=== PATIENT | male | born 1965 | race Caucasian/White ===

== ENCOUNTER 2020-12-01 07:52 | Inpatient (IN) | payer OTHER, SELFPAY ==
[2020-12-01] MEDS ORDERED: Acetaminophen 650 MG Suppository PR PRN (12:17)
[2020-12-01] MEDS ORDERED: Ondansetron ODT 4 MG TAB PO PRN (12:17)
[2020-12-01] MEDS ORDERED: Dextrose 5% in Water 1,000 ML IV PRN (12:23)
[2020-12-01] MEDS ORDERED: Lactated Ringer's 1,000 ML IV SCH (12:45)
[2020-12-01] MEDS ORDERED: Enoxaparin Sodium 40 MG/0.4 ML SYRINGE SC SCH (12:45)
[2020-12-01] MEDS ORDERED: Magnesium 2 GM/50 ML 2 GM in Premix Bag 1 BAG IVPB SCH (13:15)
[2020-12-01] MEDS ORDERED: Iopamidol-370 76% 500 ML 1 ML ONE (13:48)
[2020-12-01] MEDS: Acetaminophen 325 MG TAB PO PRN ×2 (15:31→21:15)
[2020-12-01] MEDS: Ibuprofen 600 MG TAB PO SCH ×2 (17:22→23:50)
[2020-12-01] MEDS: metFORMIN 500 MG TAB PO SCH (17:22)
[2020-12-01] MEDS: HumaLOG 300 UNITS/3 ML VIAL SC PRN ×2 (17:23→21:13)
[2020-12-01 17:39] LABS: SARS-CoV-2 NAA Rapid Test DETECTED (NotDetected)
[2020-12-01] MEDS: BARICITINIB 2 MG TAB PO SCH (18:37)
[2020-12-02] MEDS ORDERED: hydrOXYzine 25 MG TAB PO SCH (00:45)
[2020-12-02] MEDS ORDERED: Benzonatate 100 MG CAP PO SCH (00:45)
[2020-12-02] MEDS ORDERED: guaiFENesin 200 MG TAB PO SCH (00:45)
[2020-12-02] MEDS: Acetaminophen 325 MG TAB PO PRN ×3 (01:06→20:46)
[2020-12-02] MEDS: HumaLOG 300 UNITS/3 ML VIAL SC PRN ×4 (05:11→21:35)
[2020-12-02 07:25] LABS: ALT (SGPT) 17 U/L (8-55); AST (SGOT) 16 U/L (5-34); Albumin 2.5 g/dL (3.5-5.0); Alkaline Phosphatase 77 U/L (40-110); Anion Gap 10 mmol/L (10-20); BUN (Urea Nitrogen) 22 mg/dL (8.4-25.7); Bilirubin, Total 0.4 mg/dL (0.2-1.2); Calc. Creatinine Clearance 106 mL/min (70-130); Calcium 7.8 mg/dL (7.8-10.44); Carbon Dioxide 30 mmol/L (22-29); Chloride 100 mmol/L (98-107); Globulin 2.9 g/dL (2.4-3.5); Glucose 194 mg/dL (70-105); Magnesium 2.4 mg/dL (1.6-2.6); Potassium 4.7 mmol/L (3.5-5.1); Protein, Total 5.4 g/dL (6.0-8.3); Sodium 135 mmol/L (136-145)
[2020-12-02] MEDS: Enoxaparin Sodium 40 MG/0.4 ML SYRINGE SC SCH (08:57)
[2020-12-02] MEDS: metFORMIN 500 MG TAB PO SCH ×2 (08:57→17:14)
[2020-12-02] MEDS: Ibuprofen 600 MG TAB PO SCH ×2 (08:57→17:14)
[2020-12-02] MEDS: Dexamethasone 4 MG TAB PO SCH (08:57)
[2020-12-02] MEDS: hydrOXYzine 10 MG/5 ML UDCUP PO PRN ×3 (08:58→21:28)
[2020-12-02] MEDS ORDERED: predniSONE 1 MG/ML ML PO SCH (09:00)
[2020-12-02 09:18] LABS: Band 4 % (5-11); Eosinophils 2 % (0-10); Hemoglobin 12.6 g/dL (14.0-18.0); Lymphocytes 29 % (21-51); MDiff Complete? YES; Mean Corpuscular HGB CONC 31.9 g/dL (32.0-36.0); Mean Corpuscular Hemoglobin 26.5 pg (27.0-31.0); Mean Corpuscular Volume 83.1 fL (78.0-98.0); Mean Platelet Volume 7.8 fL (7.4-10.4); Monocytes 7 % (0-10); Neutrophil 58 % (42-75); Platelet Count 213 thou/uL (130-400); RBC Distribution Width 11.9 % (11.5-14.5); Red Blood Cell (RBC) Count 4.74 mill/uL (4.70-6.10)
[2020-12-02] MEDS: BARICITINIB 2 MG TAB PO SCH (17:14)
[2020-12-03] MEDS: Ibuprofen 600 MG TAB PO SCH ×3 (02:00→15:00)
[2020-12-03] MEDS: HumaLOG 300 UNITS/3 ML VIAL SC PRN ×4 (05:29→21:21)
[2020-12-03] MEDS: Acetaminophen 325 MG TAB PO PRN ×2 (05:30→17:04)
[2020-12-03] MEDS: Enoxaparin Sodium 40 MG/0.4 ML SYRINGE SC SCH (07:38)
[2020-12-03] MEDS: metFORMIN 500 MG TAB PO SCH ×2 (07:38→17:04)
[2020-12-03] MEDS: Lantus 1000 UNITS/10 ML VIAL SC SCH ×2 (07:39→21:23)
[2020-12-03] MEDS: Dexamethasone 4 MG TAB PO SCH (07:39)
[2020-12-03] MEDS: hydrOXYzine 10 MG/5 ML UDCUP PO PRN (07:40)
[2020-12-03 08:54] LABS: #Eosinphils 0.1 thou/uL (0.0-0.7); #Lymphocytes 1.8 thou/uL (1.20-3.40); #Neutrophils 7.8 thou/uL (1.40-6.50); %Basophils 0.1 % (0.0-1.0); %Eosinophils 0.9 % (0.0-10.0); %Lymphocytes 16.8 % (21.0-51.0); %Monocytes 9.3 % (0.0-10.0); %Neutrophils 72.9 % (42.0-75.0); Hemoglobin 13.2 g/dL (14.0-18.0); Mean Corpuscular HGB CONC 33.1 g/dL (32.0-36.0); Mean Corpuscular Hemoglobin 27.4 pg (27.0-31.0); Mean Corpuscular Volume 82.8 fL (78.0-98.0); Mean Platelet Volume 7.4 fL (7.4-10.4); Platelet Count 245 thou/uL (130-400); RBC Distribution Width 11.9 % (11.5-14.5); Red Blood Cell (RBC) Count 4.81 mill/uL (4.70-6.10); White Blood Cell (WBC) Count 10.7 thou/uL (4.8-10.8)
[2020-12-03 09:09] LABS: ALT (SGPT) 19 U/L (8-55); AST (SGOT) 14 U/L (5-34); Albumin 2.8 g/dL (3.5-5.0); Alkaline Phosphatase 92 U/L (40-110); Anion Gap 9 mmol/L (10-20); BUN (Urea Nitrogen) 17 mg/dL (8.4-25.7); Bilirubin, Total 0.4 mg/dL (0.2-1.2); Calc. Creatinine Clearance 113 mL/min (70-130); Calcium 8.2 mg/dL (7.8-10.44); Carbon Dioxide 30 mmol/L (22-29); Chloride 100 mmol/L (98-107); Globulin 3.3 g/dL (2.4-3.5); Glucose 231 mg/dL (70-105); Potassium 3.9 mmol/L (3.5-5.1); Protein, Total 6.1 g/dL (6.0-8.3); Sodium 135 mmol/L (136-145)
[2020-12-03] MEDS: Gabapentin 100 MG CAP PO SCH ×2 (15:00→21:17)
[2020-12-03] MEDS: BARICITINIB 2 MG TAB PO SCH (17:03)
[2020-12-03] MEDS: hydrOXYzine 25 MG TAB PO PRN (17:04)
[2020-12-04] MEDS: Ibuprofen 600 MG TAB PO SCH ×3 (00:24→16:50)
[2020-12-04] MEDS: HumaLOG 300 UNITS/3 ML VIAL SC PRN ×4 (06:15→22:13)
[2020-12-04] MEDS: Polyethylene Glycol 3350 17 GM Packet PO SCH (08:24)
[2020-12-04] MEDS: Enoxaparin Sodium 40 MG/0.4 ML SYRINGE SC SCH (08:24)
[2020-12-04] MEDS: hydrOXYzine 25 MG TAB PO PRN ×3 (08:24→16:49)
[2020-12-04] MEDS: metFORMIN 500 MG TAB PO SCH ×2 (08:25→16:49)
[2020-12-04] MEDS: Dexamethasone 4 MG TAB PO SCH (08:25)
[2020-12-04] MEDS: Gabapentin 100 MG CAP PO SCH ×3 (08:25→22:13)
[2020-12-04] MEDS: Lantus 1000 UNITS/10 ML VIAL SC SCH (08:26)
[2020-12-04] MEDS ORDERED: Lantus 1000 UNITS/10 ML VIAL SC SCH (09:00)
[2020-12-04] MEDS: Acetaminophen 325 MG TAB PO PRN (12:47)
[2020-12-04] MEDS: BARICITINIB 2 MG TAB PO SCH (16:49)
[2020-12-05] MEDS: Ibuprofen 600 MG TAB PO SCH ×2 (00:43→08:12)
[2020-12-05 07:32] LABS: #Eosinphils 0.1 thou/uL (0.0-0.7); #Monocytes 1.3 thou/uL (0.11-0.59); #Neutrophils 10.9 thou/uL (1.40-6.50); %Basophils 0.1 % (0.0-1.0); %Eosinophils 0.9 % (0.0-10.0); %Lymphocytes 14.2 % (21.0-51.0); %Monocytes 8.9 % (0.0-10.0); %Neutrophils 75.9 % (42.0-75.0); Hemoglobin 14.2 g/dL (14.0-18.0); Mean Corpuscular HGB CONC 32.1 g/dL (32.0-36.0); Mean Corpuscular Hemoglobin 26.2 pg (27.0-31.0); Mean Corpuscular Volume 81.8 fL (78.0-98.0); Mean Platelet Volume 7.7 fL (7.4-10.4); Platelet Count 297 thou/uL (130-400); Red Blood Cell (RBC) Count 5.41 mill/uL (4.70-6.10); White Blood Cell (WBC) Count 14.4 thou/uL (4.8-10.8)
[2020-12-05 07:50] LABS: ALT (SGPT) 18 U/L (8-55); AST (SGOT) 16 U/L (5-34); Albumin 3.3 g/dL (3.5-5.0); Alkaline Phosphatase 120 U/L (40-110); Anion Gap 15 mmol/L (10-20); BUN (Urea Nitrogen) 18 mg/dL (8.4-25.7); Bilirubin, Total 0.7 mg/dL (0.2-1.2); Calc. Creatinine Clearance 111 mL/min (70-130); Calcium 9.1 mg/dL (7.8-10.44); Carbon Dioxide 32 mmol/L (22-29); Chloride 98 mmol/L (98-107); Globulin 3.7 g/dL (2.4-3.5); Glucose 153 mg/dL (70-105); Potassium 3.9 mmol/L (3.5-5.1); Sodium 141 mmol/L (136-145)
[2020-12-05] MEDS: Gabapentin 100 MG CAP PO SCH ×3 (08:11→20:37)
[2020-12-05] MEDS: Lantus 1000 UNITS/10 ML VIAL SC SCH (08:11)
[2020-12-05] MEDS: Enoxaparin Sodium 40 MG/0.4 ML SYRINGE SC SCH (08:11)
[2020-12-05] MEDS: Dexamethasone 4 MG TAB PO SCH (08:11)
[2020-12-05] MEDS: metFORMIN 500 MG TAB PO SCH ×2 (08:11→16:47)
[2020-12-05] MEDS: hydrOXYzine 25 MG TAB PO PRN (08:12)
[2020-12-05] MEDS: Polyethylene Glycol 3350 17 GM Packet PO SCH (08:12)
[2020-12-05] MEDS ORDERED: Ibuprofen 600 MG TAB PO PRN (08:16)
[2020-12-05 09:04] LABS: Actual Bicarbonate (HCO3a) 30.2 mEq/L (22-28); Base Excess (BEa) 5.8 mEq/L (-2.0 to +3.0); CO2 Tension 42.9 mmHg (35.0-45.0); Calcium, Ionized (arterial) 1.16 mmol/L (1.12-1.30); Carboxyhemoglobin (COHb) 0.5 gm% (0.0-3.0); Hemoglobin (Hb) 13.9 g/dL (14.0-18.0); Potassium - ABG Lab 3.85 mmol/L (3.70-5.30); pH, Arterial 7.47 (7.35-7.45)
[2020-12-05 09:14] LABS: ALV-art Gradient 544.575 mmHg (0-20); O2 Tension (PaO2), arterial 43.5 mmHg (80.0-100.0); Puncture Site LRA
[2020-12-05] MEDS ORDERED: Fentanyl CADD 100 ML ONE (12:40)
[2020-12-05] MEDS ORDERED: Lorazepam 2 MG/ML VIAL ONE (12:46)
[2020-12-05] MEDS ORDERED: Vecuronium 10 MG VIAL ONE ×2 (12:46→13:13)
[2020-12-05] MEDS ORDERED: Lorazepam 2 MG/ML VIAL SLOW IVP PRN (13:00)
[2020-12-05] MEDS ORDERED: Fentanyl CADD 100 ML IV SCH (13:00)
[2020-12-05] MEDS ORDERED: Propofol BOLUS 1,000 MG/100 ML VIAL IV PRN ×2 (13:00→13:30)
[2020-12-05] MEDS ORDERED: Morphine 2 MG/ML VIAL SLOW IVP PRN ×2 (13:00→13:30)
[2020-12-05] MEDS ORDERED: Propofol 1,000 MG/100 ML VIAL IV PRN (13:00)
[2020-12-05] MEDS ORDERED: DISCONTINUE PREVIOUS NARCOTIC PAIN MEDICATIONS AND BENZODIAZEPINES FS SCH (13:00)
[2020-12-05] MEDS ORDERED: Fentanyl BOLUS 250 ML IVPB PRN ×2 (13:00→13:30)
[2020-12-05 13:10] LABS: Actual Bicarbonate (HCO3a) 29.7 mEq/L (22-28); Base Excess (BEa) 3.8 mEq/L (-2.0 to +3.0); Calcium, Ionized (arterial) 1.16 mmol/L (1.12-1.30); Carboxyhemoglobin (COHb) 0.5 gm% (0.0-3.0); Hemoglobin (Hb) 13.6 g/dL (14.0-18.0); pH, Arterial 7.39 (7.35-7.45)
[2020-12-05] MEDS ORDERED: Ventilator Sedation Protocol 1 EACH FS ONE (13:13)
[2020-12-05 13:17] LABS: O2 Tension (PaO2), arterial 59.6 mmHg (80.0-100.0); Puncture Site LRA
[2020-12-05] MEDS: Lorazepam 2 MG/ML VIAL SLOW IVP PRN (14:20)
[2020-12-05] MEDS: Vecuronium 10 MG VIAL IV PRN ×4 (14:20→21:07)
[2020-12-05] MEDS: HumaLOG 300 UNITS/3 ML VIAL SC PRN ×2 (16:03→21:49)
[2020-12-05] MEDS: methylPREDNISolone Sod Succ/PF 80 MG in Sodium Chloride 0.9% 250 ML 250 ML IVP SCH (17:55)
[2020-12-05] MEDS: BARICITINIB 2 MG TAB PO SCH (17:55)
[2020-12-06] MEDS: Vecuronium 10 MG VIAL IV PRN ×5 (02:20→16:04)
[2020-12-06] MEDS: HumaLOG 300 UNITS/3 ML VIAL SC PRN ×3 (03:55→23:10)
[2020-12-06 04:21] LABS: Hemoglobin 11.5 g/dL (14.0-18.0); Mean Corpuscular Hemoglobin 25.9 pg (27.0-31.0); Mean Corpuscular Volume 83.6 fL (78.0-98.0); Platelet Count 218 thou/uL (130-400); Red Blood Cell (RBC) Count 4.42 mill/uL (4.70-6.10); White Blood Cell (WBC) Count 8.7 thou/uL (4.8-10.8)
[2020-12-06 04:30] LABS: ALT (SGPT) 15 U/L (8-55); AST (SGOT) 10 U/L (5-34); Albumin 2.6 g/dL (3.5-5.0); Alkaline Phosphatase 90 U/L (40-110); Anion Gap 12 mmol/L (10-20); BUN (Urea Nitrogen) 28 mg/dL (8.4-25.7); Bilirubin, Total 0.4 mg/dL (0.2-1.2); Calc. Creatinine Clearance 111 mL/min (70-130); Calcium 7.8 mg/dL (7.8-10.44); Carbon Dioxide 27 mmol/L (22-29); Chloride 103 mmol/L (98-107); Globulin 2.9 g/dL (2.4-3.5); Glucose 211 mg/dL (70-105); Protein, Total 5.5 g/dL (6.0-8.3); Sodium 137 mmol/L (136-145)
[2020-12-06 04:58] LABS: Band 6 % (5-11); Lymphocytes 8 % (21-51); MDiff Complete? YES; Monocytes 4 % (0-10); Neutrophil 82 % (42-75)
[2020-12-06] MEDS ORDERED: Sodium Chloride 0.9% (PF) 10 ML VIAL FS PRN (07:00)
[2020-12-06] MEDS ORDERED: Fentanyl CADD 100 ML ONE ×2 (07:11→22:56)
[2020-12-06 08:22] LABS: Actual Bicarbonate (HCO3a) 25.8 mEq/L (22-28); Base Excess (BEa) 1.5 mEq/L (-2.0 to +3.0); CO2 Tension 39.9 mmHg (35.0-45.0); Calcium, Ionized (arterial) 1.12 mmol/L (1.12-1.30); Carboxyhemoglobin (COHb) 0.7 gm% (0.0-3.0); Potassium - ABG Lab 4.37 mmol/L (3.70-5.30); pH, Arterial 7.43 (7.35-7.45)
[2020-12-06 08:26] LABS: ALV-art Gradient 303.925 mmHg (0-20); Puncture Site RRA
[2020-12-06] MEDS ORDERED: Lantus 1000 UNITS/10 ML VIAL SC SCH (09:42)
[2020-12-06] MEDS: Pantoprazole 40 MG VIAL IVP SCH (10:11)
[2020-12-06] MEDS: Enoxaparin Sodium 40 MG/0.4 ML SYRINGE SC SCH (10:11)
[2020-12-06] MEDS: Polyethylene Glycol 3350 17 GM Packet PO SCH (10:12)
[2020-12-06] MEDS: methylPREDNISolone Sod Succ/PF 80 MG in Sodium Chloride 0.9% 250 ML 250 ML IVP SCH (17:46)
[2020-12-06] MEDS: BARICITINIB 2 MG TAB PO SCH (18:43)
[2020-12-06] MEDS: Fentanyl CADD 100 ML IV SCH (22:59)
[2020-12-07] MEDS: HumaLOG 300 UNITS/3 ML VIAL SC PRN ×3 (05:59→22:02)
[2020-12-07 07:05] LABS: Anion Gap 13 mmol/L (10-20); BUN (Urea Nitrogen) 30 mg/dL (8.4-25.7); Calc. Creatinine Clearance 124 mL/min (70-130); Calcium 8.3 mg/dL (7.8-10.44); Carbon Dioxide 26 mmol/L (22-29); Chloride 103 mmol/L (98-107); Glucose 217 mg/dL (70-105); Potassium 4.6 mmol/L (3.5-5.1); Sodium 137 mmol/L (136-145)
[2020-12-07 07:30] LABS: Hemoglobin 12.4 g/dL (14.0-18.0); Mean Corpuscular HGB CONC 33.8 g/dL (32.0-36.0); Mean Corpuscular Hemoglobin 27.9 pg (27.0-31.0); Mean Corpuscular Volume 82.7 fL (78.0-98.0); Mean Platelet Volume 7.5 fL (7.4-10.4); Platelet Count 263 thou/uL (130-400); RBC Distribution Width 12.2 % (11.5-14.5); Red Blood Cell (RBC) Count 4.43 mill/uL (4.70-6.10)
[2020-12-07 07:57] LABS: Band 3 % (5-11); Lymphocytes 6 % (21-51); MDiff Complete? YES; Metamyelocyte 1 % (0-0); Monocytes 7 % (0-10); Neutrophil 83 % (42-75); Platelet Morphology Comment Appears Adequate; RBC Morphology Normal
[2020-12-07] MEDS: Vecuronium 10 MG VIAL IV PRN ×2 (08:41→21:04)
[2020-12-07] MEDS: Enoxaparin Sodium 40 MG/0.4 ML SYRINGE SC SCH ×2 (08:41→21:03)
[2020-12-07] MEDS: Pantoprazole 40 MG VIAL IVP SCH (08:42)
[2020-12-07] MEDS: Lorazepam 2 MG/ML VIAL SLOW IVP PRN (08:42)
[2020-12-07 09:17] LABS: Actual Bicarbonate (HCO3a) 27.8 mEq/L (22-28); Base Excess (BEa) 2.3 mEq/L (-2.0 to +3.0); CO2 Tension 46.3 mmHg (35.0-45.0); Calcium, Ionized (arterial) 1.15 mmol/L (1.12-1.30); Carboxyhemoglobin (COHb) 0.8 gm% (0.0-3.0); O2 Tension (PaO2), arterial 64.7 mmHg (80.0-100.0); Potassium - ABG Lab 4.32 mmol/L (3.70-5.30); Puncture Site RRA
[2020-12-07 09:18] LABS: ALV-art Gradient 233.925 mmHg (0-20)
[2020-12-07] MEDS ORDERED: Fentanyl CADD 100 ML ONE ×2 (10:45→19:21)
[2020-12-07] MEDS: Fentanyl CADD 100 ML IV SCH (10:47)
[2020-12-07] MEDS: Polyethylene Glycol 3350 17 GM Packet PO SCH (12:01)
[2020-12-07] MEDS: methylPREDNISolone Sod Succ/PF 80 MG in Sodium Chloride 0.9% 250 ML 250 ML IVP SCH (16:01)
[2020-12-07] MEDS: BARICITINIB 2 MG TAB PO SCH (18:22)
[2020-12-08] MEDS: Vecuronium 10 MG VIAL IV PRN ×2 (01:12→02:42)
[2020-12-08 04:23] LABS: ALT (SGPT) 13 U/L (8-55); AST (SGOT) 9 U/L (5-34); Albumin 2.7 g/dL (3.5-5.0); Alkaline Phosphatase 81 U/L (40-110); Anion Gap 9 mmol/L (10-20); BUN (Urea Nitrogen) 26 mg/dL (8.4-25.7); Bilirubin, Total 0.5 mg/dL (0.2-1.2); Calc. Creatinine Clearance 132 mL/min (70-130); Calcium 8.1 mg/dL (7.8-10.44); Carbon Dioxide 29 mmol/L (22-29); Chloride 103 mmol/L (98-107); Glucose 241 mg/dL (70-105); Potassium 4.6 mmol/L (3.5-5.1); Protein, Total 5.7 g/dL (6.0-8.3); Sodium 136 mmol/L (136-145)
[2020-12-08 04:37] LABS: Mean Corpuscular HGB CONC 32.7 g/dL (32.0-36.0); Mean Corpuscular Volume 82.6 fL (78.0-98.0); Mean Platelet Volume 7.7 fL (7.4-10.4); Platelet Count 278 thou/uL (130-400); RBC Distribution Width 12.1 % (11.5-14.5); Red Blood Cell (RBC) Count 4.44 mill/uL (4.70-6.10); White Blood Cell (WBC) Count 12.6 thou/uL (4.8-10.8)
[2020-12-08 05:00] LABS: Band 2 % (5-11); Lymphocytes 8 % (21-51); MDiff Complete? YES; Monocytes 5 % (0-10); Neutrophil 84 % (42-75); Platelet Morphology Comment Appears Adequate; RBC Morphology Normal; Reactive Lymphocytes 1 % (0-10)
[2020-12-08] MEDS ORDERED: Fentanyl CADD 100 ML ONE ×2 (05:13→15:28)
[2020-12-08] MEDS: Fentanyl CADD 100 ML IV SCH (05:20)
[2020-12-08] MEDS: HumaLOG 300 UNITS/3 ML VIAL SC PRN ×3 (05:20→22:34)
[2020-12-08] MEDS: Midazolam In 0.9 % NaCl/PF 100 ML IVPB PRN ×2 (06:42→20:52)
[2020-12-08 07:31] LABS: Actual Bicarbonate (HCO3a) 25.8 mEq/L (22-28); Base Excess (BEa) 2.3 mEq/L (-2.0 to +3.0); CO2 Tension 36.4 mmHg (35.0-45.0); Calcium, Ionized (arterial) 1.15 mmol/L (1.12-1.30); Carboxyhemoglobin (COHb) 0.3 gm% (0.0-3.0); Hemoglobin (Hb) 12.8 g/dL (14.0-18.0); O2 Tension (PaO2), arterial 84.2 mmHg (80.0-100.0); Potassium - ABG Lab 4.45 mmol/L (3.70-5.30); pH, Arterial 7.47 (7.35-7.45)
[2020-12-08 07:48] LABS: Puncture Site RRA
[2020-12-08] MEDS ORDERED: Lantus 1000 UNITS/10 ML VIAL SC SCH (09:00)
[2020-12-08] MEDS: Polyethylene Glycol 3350 17 GM Packet PO SCH (09:13)
[2020-12-08] MEDS: Pantoprazole 40 MG VIAL IVP SCH (09:20)
[2020-12-08] MEDS: Enoxaparin Sodium 40 MG/0.4 ML SYRINGE SC SCH ×2 (09:20→21:08)
[2020-12-08] MEDS ORDERED: Potassium Chloride 20 MEQ TAB PO SCH (12:30)
[2020-12-08] MEDS ORDERED: Sterile Water 10 ML ONE (14:29)
[2020-12-08] MEDS: methylPREDNISolone Sod Succ/PF 80 MG in Sodium Chloride 0.9% 250 ML 250 ML IVP SCH (16:59)
[2020-12-08] MEDS ORDERED: metFORMIN 500 MG TAB PO SCH (17:00)
[2020-12-08] MEDS: BARICITINIB 2 MG TAB PO SCH (17:38)
[2020-12-09] MEDS ORDERED: Fentanyl CADD 100 ML ONE ×2 (04:15→15:55)
[2020-12-09] MEDS: Fentanyl CADD 100 ML IV SCH ×2 (04:20→15:59)
[2020-12-09 05:22] LABS: Hemoglobin 12.3 g/dL (14.0-18.0); Lymphocytes 9 % (21-51); MDiff Complete? YES; Mean Corpuscular HGB CONC 32.2 g/dL (32.0-36.0); Mean Corpuscular Hemoglobin 26.4 pg (27.0-31.0); Mean Corpuscular Volume 82.2 fL (78.0-98.0); Mean Platelet Volume 8.2 fL (7.4-10.4); Monocytes 8 % (0-10); Myelocyte 1 % (0-0); Neutrophil 82 % (42-75); Platelet Count 282 thou/uL (130-400); Platelet Morphology Comment Appears Adequate; RBC Distribution Width 12.1 % (11.5-14.5); Red Blood Cell (RBC) Count 4.66 mill/uL (4.70-6.10); White Blood Cell (WBC) Count 9.5 thou/uL (4.8-10.8)
[2020-12-09 05:55] LABS: ALT (SGPT) 14 U/L (8-55); AST (SGOT) 9 U/L (5-34); Albumin 2.8 g/dL (3.5-5.0); Alkaline Phosphatase 76 U/L (40-110); Anion Gap 12 mmol/L (10-20); BUN (Urea Nitrogen) 27 mg/dL (8.4-25.7); Bilirubin, Total 0.6 mg/dL (0.2-1.2); Calc. Creatinine Clearance 129 mL/min (70-130); Calcium 8.3 mg/dL (7.8-10.44); Carbon Dioxide 26 mmol/L (22-29); Chloride 103 mmol/L (98-107); Glucose 201 mg/dL (70-105); Potassium 4.6 mmol/L (3.5-5.1); Protein, Total 5.8 g/dL (6.0-8.3); Sodium 136 mmol/L (136-145)
[2020-12-09] MEDS: HumaLOG 300 UNITS/3 ML VIAL SC PRN ×3 (06:51→22:54)
[2020-12-09 07:25] LABS: Actual Bicarbonate (HCO3a) 24.1 mEq/L (22-28); Base Excess (BEa) 2.2 mEq/L (-2.0 to +3.0); CO2 Tension 29.3 mmHg (35.0-45.0); Calcium, Ionized (arterial) 1.15 mmol/L (1.12-1.30); Carboxyhemoglobin (COHb) 0.4 gm% (0.0-3.0); Hemoglobin (Hb) 12.6 g/dL (14.0-18.0); O2 Tension (PaO2), arterial 60.7 mmHg (80.0-100.0); Potassium - ABG Lab 4.24 mmol/L (3.70-5.30); pH, Arterial 7.53 (7.35-7.45)
[2020-12-09 07:35] LABS: ALV-art Gradient 187.875 mmHg (0-20)
[2020-12-09] MEDS: Lantus 1000 UNITS/10 ML VIAL SC SCH ×2 (09:00→11:45)
[2020-12-09] MEDS: Polyethylene Glycol 3350 17 GM Packet PO SCH (09:00)
[2020-12-09] MEDS: Enoxaparin Sodium 40 MG/0.4 ML SYRINGE SC SCH ×2 (09:00→20:07)
[2020-12-09] MEDS: Pantoprazole 40 MG VIAL IVP SCH (09:00)
[2020-12-09] MEDS: Midazolam In 0.9 % NaCl/PF 100 ML IVPB PRN ×2 (09:36→22:54)
[2020-12-09] MEDS: methylPREDNISolone Sod Succ/PF 80 MG in Sodium Chloride 0.9% 250 ML 250 ML IVP SCH (15:59)
[2020-12-09] MEDS: BARICITINIB 2 MG TAB PO SCH (18:12)
[2020-12-10 04:12] LABS: Anion Gap 11 mmol/L (10-20); BUN (Urea Nitrogen) 24 mg/dL (8.4-25.7); Calc. Creatinine Clearance 131 mL/min (70-130); Calcium 8.1 mg/dL (7.8-10.44); Carbon Dioxide 26 mmol/L (22-29); Chloride 104 mmol/L (98-107); Glucose 179 mg/dL (70-105); Potassium 4.7 mmol/L (3.5-5.1); Sodium 136 mmol/L (136-145)
[2020-12-10 04:27] LABS: Band 4 % (5-11); Hemoglobin 12.3 g/dL (14.0-18.0); Lymphocytes 9 % (21-51); MDiff Complete? YES; Mean Corpuscular HGB CONC 34.1 g/dL (32.0-36.0); Mean Corpuscular Volume 82.2 fL (78.0-98.0); Mean Platelet Volume 8.2 fL (7.4-10.4); Monocytes 7 % (0-10); Myelocyte 1 % (0-0); Neutrophil 75 % (42-75); Platelet Count 301 thou/uL (130-400); Platelet Morphology Comment Appears Adequate; RBC Morphology Normal; Reactive Lymphocytes 4 % (0-10); White Blood Cell (WBC) Count 10.2 thou/uL (4.8-10.8)
[2020-12-10] MEDS: HumaLOG 300 UNITS/3 ML VIAL SC PRN ×3 (04:46→21:02)
[2020-12-10] MEDS ORDERED: Fentanyl CADD 100 ML ONE ×2 (05:47→17:50)
[2020-12-10] MEDS: Fentanyl CADD 100 ML IV SCH ×2 (05:54→17:54)
[2020-12-10 08:07] LABS: Actual Bicarbonate (HCO3a) 23.9 mEq/L (22-28); Base Excess (BEa) 1.2 mEq/L (-2.0 to +3.0); CO2 Tension 31.9 mmHg (35.0-45.0); Calcium, Ionized (arterial) 1.13 mmol/L (1.12-1.30); Carboxyhemoglobin (COHb) 0.6 gm% (0.0-3.0); Hemoglobin (Hb) 12.6 g/dL (14.0-18.0); O2 Tension (PaO2), arterial 106.9 mmHg (80.0-100.0); pH, Arterial 7.49 (7.35-7.45)
[2020-12-10] MEDS: Lantus 1000 UNITS/10 ML VIAL SC SCH (08:34)
[2020-12-10] MEDS: Polyethylene Glycol 3350 17 GM Packet PO SCH (08:34)
[2020-12-10] MEDS: Propofol 1,000 MG/100 ML VIAL IV PRN ×2 (08:34→17:00)
[2020-12-10] MEDS: Pantoprazole 40 MG VIAL IVP SCH (08:34)
[2020-12-10] MEDS: Enoxaparin Sodium 40 MG/0.4 ML SYRINGE SC SCH ×2 (08:34→21:04)
[2020-12-10 08:37] LABS: ALV-art Gradient 138.425 mmHg (0-20); Puncture Site RRA
[2020-12-10] MEDS: BARICITINIB 2 MG TAB PO SCH (16:59)
[2020-12-10] MEDS: methylPREDNISolone Sod Succ/PF 80 MG in Sodium Chloride 0.9% 250 ML 250 ML IVP SCH (16:59)
[2020-12-10] MEDS: Lorazepam 2 MG/ML VIAL SLOW IVP PRN (21:02)
[2020-12-11] MEDS: Propofol 1,000 MG/100 ML VIAL IV PRN ×3 (01:44→14:36)
[2020-12-11 04:16] LABS: Anion Gap 10 mmol/L (10-20); BUN (Urea Nitrogen) 22 mg/dL (8.4-25.7); Calc. Creatinine Clearance 127 mL/min (70-130); Calcium 8.3 mg/dL (7.8-10.44); Carbon Dioxide 28 mmol/L (22-29); Chloride 102 mmol/L (98-107); Glucose 181 mg/dL (70-105); Potassium 4.9 mmol/L (3.5-5.1); Sodium 135 mmol/L (136-145)
[2020-12-11 04:37] LABS: Band 3 % (5-11); Hemoglobin 12.3 g/dL (14.0-18.0); Hypochromia SLIGHT = 6-15 cells (100X) (0-5/hpf); Lymphocytes 10 % (21-51); MDiff Complete? YES; Mean Corpuscular HGB CONC 32.7 g/dL (32.0-36.0); Mean Corpuscular Hemoglobin 27.1 pg (27.0-31.0); Mean Corpuscular Volume 82.9 fL (78.0-98.0); Mean Platelet Volume 8.1 fL (7.4-10.4); Monocytes 11 % (0-10); Neutrophil 76 % (42-75); Platelet Count 277 thou/uL (130-400); Platelet Morphology Comment Appears Adequate; Red Blood Cell (RBC) Count 4.53 mill/uL (4.70-6.10); White Blood Cell (WBC) Count 12.4 thou/uL (4.8-10.8)
[2020-12-11] MEDS: HumaLOG 300 UNITS/3 ML VIAL SC PRN ×2 (05:19→21:41)
[2020-12-11] MEDS ORDERED: Fentanyl CADD 100 ML ONE ×2 (07:07→20:18)
[2020-12-11] MEDS: Fentanyl CADD 100 ML IV SCH ×2 (07:10→20:21)
[2020-12-11 07:47] LABS: CO2 Tension 39.5 mmHg (35.0-45.0); Calcium, Ionized (arterial) 1.18 mmol/L (1.12-1.30); Carboxyhemoglobin (COHb) 0.7 gm% (0.0-3.0); Hemoglobin (Hb) 13.3 g/dL (14.0-18.0); O2 Tension (PaO2), arterial 108.9 mmHg (80.0-100.0); Potassium - ABG Lab 4.52 mmol/L (3.70-5.30); pH, Arterial 7.45 (7.35-7.45)
[2020-12-11 08:21] LABS: ALV-art Gradient 126.925 mmHg (0-20); Puncture Site RRA
[2020-12-11] MEDS: Lorazepam 2 MG/ML VIAL SLOW IVP PRN ×2 (09:34→21:38)
[2020-12-11] MEDS: Dexamethasone 4 MG TAB PER TUBE SCH ×2 (09:34→19:58)
[2020-12-11] MEDS: Docusate 100 MG CAP PER TUBE SCH ×2 (09:34→19:57)
[2020-12-11] MEDS: Senokot S 8.6-50 MG TAB PO SCH ×2 (09:34→19:58)
[2020-12-11] MEDS: Polyethylene Glycol 3350 17 GM Packet PO SCH (09:34)
[2020-12-11] MEDS: Lantus 1000 UNITS/10 ML VIAL SC SCH (09:35)
[2020-12-11] MEDS: Enoxaparin Sodium 40 MG/0.4 ML SYRINGE SC SCH (10:24)
[2020-12-11] MEDS: BARICITINIB 2 MG TAB PO SCH (17:50)
[2020-12-12] MEDS: Propofol 1,000 MG/100 ML VIAL IV PRN ×2 (02:13→21:32)
[2020-12-12] MEDS: HumaLOG 300 UNITS/3 ML VIAL SC PRN ×2 (04:43→08:32)
[2020-12-12 05:04] LABS: Band 2 % (5-11); Hemoglobin 12.3 g/dL (14.0-18.0); Lymphocytes 11 % (21-51); MDiff Complete? YES; Mean Corpuscular Hemoglobin 27.2 pg (27.0-31.0); Mean Corpuscular Volume 84.8 fL (78.0-98.0); Metamyelocyte 2 % (0-0); Monocytes 6 % (0-10); Neutrophil 78 % (42-75); Platelet Count 279 thou/uL (130-400); Platelet Morphology Comment Appears Adequate; RBC Morphology Normal; Reactive Lymphocytes 1 % (0-10); Red Blood Cell (RBC) Count 4.52 mill/uL (4.70-6.10); White Blood Cell (WBC) Count 11.1 thou/uL (4.8-10.8)
[2020-12-12 05:06] LABS: Anion Gap 11 mmol/L (10-20); BUN (Urea Nitrogen) 21 mg/dL (8.4-25.7); Calc. Creatinine Clearance 124 mL/min (70-130); Calcium 8.2 mg/dL (7.8-10.44); Carbon Dioxide 30 mmol/L (22-29); Chloride 101 mmol/L (98-107); Glucose 180 mg/dL (70-105); Potassium 4.5 mmol/L (3.5-5.1); Sodium 137 mmol/L (136-145)
[2020-12-12 05:14] LABS: ALT (SGPT) 12 U/L (8-55); AST (SGOT) 8 U/L (5-34); Albumin 2.6 g/dL (3.5-5.0); Alkaline Phosphatase 71 U/L (40-110); Bilirubin, Direct 0.2 mg/dL (0.1-0.3); Bilirubin, Total 0.4 mg/dL (0.2-1.2); Protein, Total 5.8 g/dL (6.0-8.3)
[2020-12-12 07:43] LABS: Actual Bicarbonate (HCO3a) 34.2 mEq/L (22-28); Base Excess (BEa) 9.6 mEq/L (-2.0 to +3.0); CO2 Tension 46.2 mmHg (35.0-45.0); Calcium, Ionized (arterial) 1.16 mmol/L (1.12-1.30); Carboxyhemoglobin (COHb) 0.7 gm% (0.0-3.0); Hemoglobin (Hb) 12.6 g/dL (14.0-18.0); Potassium - ABG Lab 4.13 mmol/L (3.70-5.30); Puncture Site RBA; pH, Arterial 7.49 (7.35-7.45)
[2020-12-12] MEDS: Senokot S 8.6-50 MG TAB PO SCH ×2 (08:05→21:29)
[2020-12-12] MEDS: Dexamethasone 4 MG TAB PER TUBE SCH ×2 (08:05→21:29)
[2020-12-12] MEDS: Docusate 100 MG CAP PER TUBE SCH (08:05)
[2020-12-12] MEDS: Polyethylene Glycol 3350 17 GM Packet PO SCH (08:05)
[2020-12-12] MEDS: Lantus 1000 UNITS/10 ML VIAL SC SCH (08:06)
[2020-12-12] MEDS ORDERED: Fentanyl CADD 100 ML ONE (09:07)
[2020-12-12] MEDS: Fentanyl CADD 100 ML IV SCH ×2 (09:09→21:30)
[2020-12-12] MEDS: Enoxaparin Sodium 40 MG/0.4 ML SYRINGE SC SCH ×2 (09:10→21:31)
[2020-12-12] MEDS: Dexmedetomidine 1,000 MCG in Sodium Chloride 0.9% 250 ML 240 ML IVPB SCH ×2 (13:15→23:16)
[2020-12-12] MEDS: Lorazepam 2 MG/ML VIAL SLOW IVP PRN (16:45)
[2020-12-12] MEDS: BARICITINIB 2 MG TAB PO SCH (17:16)
[2020-12-12] MEDS: Dextrose 50% Abboject 50 ML SYRINGE SLOW IVP PRN (22:03)
[2020-12-13] MEDS: Lorazepam 2 MG/ML VIAL SLOW IVP PRN ×2 (02:55→16:15)
[2020-12-13 05:13] LABS: Anion Gap 11 mmol/L (10-20); BUN (Urea Nitrogen) 17 mg/dL (8.4-25.7); Calc. Creatinine Clearance 155 mL/min (70-130); Calcium 6.9 mg/dL (7.8-10.44); Carbon Dioxide 26 mmol/L (22-29); Chloride 107 mmol/L (98-107); Glucose 66 mg/dL (70-105); Potassium 3.8 mmol/L (3.5-5.1); Sodium 140 mmol/L (136-145); Triglycerides 83 mg/dL (Less than 150)
[2020-12-13] MEDS: Fentanyl CADD 100 ML IV SCH (06:34)
[2020-12-13 07:14] LABS: Actual Bicarbonate (HCO3a) 30.4 mEq/L (22-28); Base Excess (BEa) 5.7 mEq/L (-2.0 to +3.0); CO2 Tension 44.5 mmHg (35.0-45.0); Calcium, Ionized (arterial) 1.16 mmol/L (1.12-1.30); Carboxyhemoglobin (COHb) 0.9 gm% (0.0-3.0); Hemoglobin (Hb) 13.5 g/dL (14.0-18.0); O2 Tension (PaO2), arterial 62.7 mmHg (80.0-100.0); Potassium - ABG Lab 3.93 mmol/L (3.70-5.30); Puncture Site RRA; pH, Arterial 7.45 (7.35-7.45)
[2020-12-13 07:15] LABS: ALV-art Gradient 131.225 mmHg (0-20)
[2020-12-13] MEDS: Dextrose 50% Abboject 50 ML SYRINGE SLOW IVP PRN (08:17)
[2020-12-13] MEDS: Enoxaparin Sodium 40 MG/0.4 ML SYRINGE SC SCH ×2 (08:18→21:00)
[2020-12-13] MEDS: Polyethylene Glycol 3350 17 GM Packet PO SCH (08:18)
[2020-12-13] MEDS: Senokot S 8.6-50 MG TAB PO SCH ×2 (08:18→22:50)
[2020-12-13] MEDS ORDERED: Lantus 1000 UNITS/10 ML VIAL SC SCH (09:00)
[2020-12-13] MEDS: Dexamethasone 4 MG TAB PER TUBE SCH ×2 (09:06→22:49)
[2020-12-13 09:23] LABS: Hemoglobin 13.5 g/dL (14.0-18.0); Mean Corpuscular Hemoglobin 25.9 pg (27.0-31.0); Mean Corpuscular Volume 83.8 fL (78.0-98.0); Platelet Count 233 thou/uL (130-400); RBC Distribution Width 12.2 % (11.5-14.5); White Blood Cell (WBC) Count 15.6 thou/uL (4.8-10.8)
[2020-12-13 09:49] LABS: Band 6 % (5-11); Lymphocytes 10 % (21-51); MDiff Complete? YES; Monocytes 7 % (0-10); Neutrophil 75 % (42-75); Platelet Morphology Comment Appears Adequate; RBC Morphology Normal; Reactive Lymphocytes 2 % (0-10)
[2020-12-13] MEDS: Dexmedetomidine 1,000 MCG in Sodium Chloride 0.9% 250 ML 240 ML IVPB SCH ×2 (10:44→19:58)
[2020-12-13 15:00] LABS: Glucose 139 mg/dL (70-105)
[2020-12-13] MEDS: Morphine 4 MG/ML VIAL SLOW IVP PRN (20:28)
[2020-12-13] MEDS ORDERED: Dexamethasone 4 mg/ml Vial SLOW IVP SCH (21:45)
[2020-12-13] MEDS: BARICITINIB 2 MG TAB PO SCH (22:49)
[2020-12-14] MEDS: HumaLOG 300 UNITS/3 ML VIAL SC PRN (00:54)
[2020-12-14] MEDS: Morphine 4 MG/ML VIAL SLOW IVP PRN (03:05)
[2020-12-14 04:22] LABS: #Eosinphils 0.1 thou/uL (0.0-0.7); #Lymphocytes 1.1 thou/uL (1.20-3.40); #Monocytes 0.8 thou/uL (0.11-0.59); #Neutrophils 12.3 thou/uL (1.40-6.50); %Basophils 0.2 % (0.0-1.0); %Eosinophils 0.7 % (0.0-10.0); %Monocytes 5.6 % (0.0-10.0); %Neutrophils 85.5 % (42.0-75.0); Hemoglobin 13.5 g/dL (14.0-18.0); Mean Corpuscular Hemoglobin 28.3 pg (27.0-31.0); Mean Corpuscular Volume 83.4 fL (78.0-98.0); Mean Platelet Volume 8.2 fL (7.4-10.4); Platelet Count 212 thou/uL (130-400); Red Blood Cell (RBC) Count 4.76 mill/uL (4.70-6.10); White Blood Cell (WBC) Count 14.4 thou/uL (4.8-10.8)
[2020-12-14 04:53] LABS: Anion Gap 13 mmol/L (10-20); BUN (Urea Nitrogen) 18 mg/dL (8.4-25.7); Calc. Creatinine Clearance 121 mL/min (70-130); Calcium 8.3 mg/dL (7.8-10.44); Carbon Dioxide 28 mmol/L (22-29); Chloride 98 mmol/L (98-107); Glucose 140 mg/dL (70-105); Potassium 4.3 mmol/L (3.5-5.1); Sodium 135 mmol/L (136-145); Triglycerides 103 mg/dL (Less than 150)
[2020-12-14] MEDS: Dexmedetomidine 1,000 MCG in Sodium Chloride 0.9% 250 ML 240 ML IVPB SCH (06:10)
[2020-12-14] MEDS: Lorazepam 2 MG/ML VIAL SLOW IVP PRN (08:14)
[2020-12-14] MEDS ORDERED: Pantoprazole 40 MG GRANULES PACKET PER TUBE SCH (09:00)
[2020-12-14] MEDS: Dexamethasone 10 MG/ML VIAL SLOW IVP SCH ×2 (09:27→20:30)
[2020-12-14] MEDS: Enoxaparin Sodium 40 MG/0.4 ML SYRINGE SC SCH ×2 (09:27→20:30)
[2020-12-14] MEDS: Senokot S 8.6-50 MG TAB PO SCH ×2 (09:28→20:31)
[2020-12-14] MEDS: Polyethylene Glycol 3350 17 GM Packet PO SCH (09:28)
[2020-12-14] MEDS: Pantoprazole 40 MG VIAL IVP SCH (09:28)
[2020-12-14] MEDS ORDERED: Lorazepam 2 MG/ML VIAL SLOW IVP PRN (12:16)
[2020-12-14] MEDS ORDERED: fentaNYL 50 mcg/hour Patch TD SCH (13:00)
[2020-12-14] MEDS: Lorazepam 2 MG/ML VIAL SLOW IVP SCH ×2 (13:41→20:30)
[2020-12-14] MEDS: BARICITINIB 2 MG TAB PO SCH (18:52)
[2020-12-15 04:02] LABS: #Lymphocytes 1.6 thou/uL (1.20-3.40); #Neutrophils 11.5 thou/uL (1.40-6.50); %Basophils 0.2 % (0.0-1.0); %Eosinophils 0.2 % (0.0-10.0); %Lymphocytes 11.3 % (21.0-51.0); %Monocytes 7.2 % (0.0-10.0); Mean Corpuscular HGB CONC 32.3 g/dL (32.0-36.0); Mean Corpuscular Hemoglobin 26.6 pg (27.0-31.0); Mean Corpuscular Volume 82.2 fL (78.0-98.0); Mean Platelet Volume 7.6 fL (7.4-10.4); Platelet Count 306 thou/uL (130-400); Red Blood Cell (RBC) Count 5.28 mill/uL (4.70-6.10); White Blood Cell (WBC) Count 14.2 thou/uL (4.8-10.8)
[2020-12-15 04:21] LABS: Phosphorus 2.1 mg/dL (2.3-4.7)
[2020-12-15 04:24] LABS: ALT (SGPT) 23 U/L (8-55); AST (SGOT) 23 U/L (5-34); Albumin 2.9 g/dL (3.5-5.0); Alkaline Phosphatase 85 U/L (40-110); Anion Gap 11 mmol/L (10-20); BUN (Urea Nitrogen) 20 mg/dL (8.4-25.7); Bilirubin, Total 0.9 mg/dL (0.2-1.2); Calc. Creatinine Clearance 110 mL/min (70-130); Calcium 8.5 mg/dL (7.8-10.44); Carbon Dioxide 30 mmol/L (22-29); Chloride 98 mmol/L (98-107); Globulin 3.1 g/dL (2.4-3.5); Glucose 122 mg/dL (70-105); Magnesium 1.8 mg/dL (1.6-2.6); Sodium 135 mmol/L (136-145); Triglycerides 119 mg/dL (Less than 150)
[2020-12-15] MEDS: Lorazepam 2 MG/ML VIAL SLOW IVP SCH ×3 (05:59→22:21)
[2020-12-15] MEDS: Dexamethasone 10 MG/ML VIAL SLOW IVP SCH ×2 (10:27→22:20)
[2020-12-15] MEDS: Polyethylene Glycol 3350 17 GM Packet PO SCH (10:28)
[2020-12-15] MEDS: Senokot S 8.6-50 MG TAB PO SCH ×2 (10:28→22:21)
[2020-12-15] MEDS: Enoxaparin Sodium 40 MG/0.4 ML SYRINGE SC SCH ×2 (10:28→22:20)
[2020-12-15] MEDS: Pantoprazole 40 MG VIAL IVP SCH (10:28)
[2020-12-15] MEDS ORDERED: Ketorolac Tromethamine 30 MG/ML VIAL IVP SCH ×2 (12:00→12:45)
[2020-12-15] MEDS: BARICITINIB 2 MG TAB PO SCH (17:22)
[2020-12-16] MEDS: Lorazepam 2 MG/ML VIAL SLOW IVP SCH ×4 (05:52→22:10)
[2020-12-16 07:47] LABS: #Lymphocytes 0.8 thou/uL (1.20-3.40); #Monocytes 0.4 thou/uL (0.11-0.59); #Neutrophils 7.1 thou/uL (1.40-6.50); %Basophils 0.2 % (0.0-1.0); %Eosinophils 0.2 % (0.0-10.0); %Lymphocytes 9.6 % (21.0-51.0); %Monocytes 5.3 % (0.0-10.0); %Neutrophils 84.8 % (42.0-75.0); Hemoglobin 14.2 g/dL (14.0-18.0); Mean Corpuscular HGB CONC 32.7 g/dL (32.0-36.0); Mean Corpuscular Hemoglobin 26.5 pg (27.0-31.0); Mean Corpuscular Volume 81.1 fL (78.0-98.0); Mean Platelet Volume 7.8 fL (7.4-10.4); Platelet Count 302 thou/uL (130-400); RBC Distribution Width 11.9 % (11.5-14.5); Red Blood Cell (RBC) Count 5.37 mill/uL (4.70-6.10); White Blood Cell (WBC) Count 8.4 thou/uL (4.8-10.8)
[2020-12-16] MEDS: Pantoprazole 40 MG VIAL IVP SCH (07:57)
[2020-12-16] MEDS: Enoxaparin Sodium 40 MG/0.4 ML SYRINGE SC SCH ×2 (07:57→22:10)
[2020-12-16] MEDS: Dexamethasone 10 MG/ML VIAL SLOW IVP SCH ×2 (07:57→22:10)
[2020-12-16] MEDS: Polyethylene Glycol 3350 17 GM Packet PO SCH (08:04)
[2020-12-16] MEDS: Senokot S 8.6-50 MG TAB PO SCH ×2 (08:04→22:11)
[2020-12-16 08:06] LABS: ALT (SGPT) 27 U/L (8-55); AST (SGOT) 17 U/L (5-34); Albumin 3.1 g/dL (3.5-5.0); Alkaline Phosphatase 93 U/L (40-110); Anion Gap 15 mmol/L (10-20); BUN (Urea Nitrogen) 19 mg/dL (8.4-25.7); Calc. Creatinine Clearance 112 mL/min (70-130); Calcium 8.7 mg/dL (7.8-10.44); Carbon Dioxide 25 mmol/L (22-29); Chloride 95 mmol/L (98-107); Globulin 3.4 g/dL (2.4-3.5); Glucose 197 mg/dL (70-105); Magnesium 1.8 mg/dL (1.6-2.6); Phosphorus 2.2 mg/dL (2.3-4.7); Potassium 4.4 mmol/L (3.5-5.1); Protein, Total 6.5 g/dL (6.0-8.3); Sodium 131 mmol/L (136-145)
[2020-12-16] MEDS: HumaLOG 300 UNITS/3 ML VIAL SC PRN (17:02)
[2020-12-17] MEDS: Lorazepam 2 MG/ML VIAL SLOW IVP SCH (05:43)
[2020-12-17] MEDS: HumaLOG 300 UNITS/3 ML VIAL SC PRN ×3 (05:45→16:38)
[2020-12-17] MEDS: Polyethylene Glycol 3350 17 GM Packet PO SCH (07:02)
[2020-12-17] MEDS: Senokot S 8.6-50 MG TAB PO SCH ×2 (07:02→20:50)
[2020-12-17 07:31] LABS: #Monocytes 0.5 thou/uL (0.11-0.59); #Neutrophils 8.6 thou/uL (1.40-6.50); %Basophils 0.1 % (0.0-1.0); %Eosinophils 0.2 % (0.0-10.0); %Lymphocytes 9.9 % (21.0-51.0); %Monocytes 4.5 % (0.0-10.0); %Neutrophils 85.3 % (42.0-75.0); Hemoglobin 14.9 g/dL (14.0-18.0); Mean Corpuscular HGB CONC 34.1 g/dL (32.0-36.0); Mean Corpuscular Hemoglobin 27.1 pg (27.0-31.0); Mean Corpuscular Volume 79.4 fL (78.0-98.0); Mean Platelet Volume 7.8 fL (7.4-10.4); Platelet Count 312 thou/uL (130-400); RBC Distribution Width 11.8 % (11.5-14.5); Red Blood Cell (RBC) Count 5.52 mill/uL (4.70-6.10); White Blood Cell (WBC) Count 10.1 thou/uL (4.8-10.8)
[2020-12-17 07:39] LABS: ALT (SGPT) 27 U/L (8-55); AST (SGOT) 14 U/L (5-34); Albumin 3.3 g/dL (3.5-5.0); Alkaline Phosphatase 91 U/L (40-110); Anion Gap 14 mmol/L (10-20); BUN (Urea Nitrogen) 17 mg/dL (8.4-25.7); Calc. Creatinine Clearance 107 mL/min (70-130); Calcium 8.6 mg/dL (7.8-10.44); Carbon Dioxide 25 mmol/L (22-29); Chloride 95 mmol/L (98-107); Globulin 3.4 g/dL (2.4-3.5); Glucose 224 mg/dL (70-105); Magnesium 1.9 mg/dL (1.6-2.6); Potassium 4.3 mmol/L (3.5-5.1); Protein, Total 6.7 g/dL (6.0-8.3); Sodium 130 mmol/L (136-145)
[2020-12-17] MEDS: Enoxaparin Sodium 40 MG/0.4 ML SYRINGE SC SCH (08:01)
[2020-12-17] MEDS: Dexamethasone 10 MG/ML VIAL SLOW IVP SCH (08:01)
[2020-12-17] MEDS: Pantoprazole 40 MG VIAL IVP SCH (08:01)
[2020-12-17 13:52] VITALS: BMI 21.4
[2020-12-17] MEDS: metFORMIN 500 MG TAB PO SCH (16:38)
[2020-12-17] MEDS: Apixaban 5 MG TAB PO SCH (20:50)
[2020-12-17] MEDS: Lorazepam 0.5 MG TAB PO SCH (20:51)
[2020-12-17] MEDS ORDERED: Lorazepam 2 MG/ML VIAL SLOW IVP SCH (21:00)
[2020-12-18] MEDS: HumaLOG 300 UNITS/3 ML VIAL SC PRN ×3 (05:32→21:00)
[2020-12-18 07:27] LABS: Anion Gap 13 mmol/L (10-20); BUN (Urea Nitrogen) 13 mg/dL (8.4-25.7); Calc. Creatinine Clearance 107 mL/min (70-130); Calcium 8.1 mg/dL (7.8-10.44); Carbon Dioxide 23 mmol/L (22-29); Chloride 98 mmol/L (98-107); Glucose 241 mg/dL (70-105); Potassium 4.2 mmol/L (3.5-5.1); Sodium 130 mmol/L (136-145)
[2020-12-18] MEDS: metFORMIN 500 MG TAB PO SCH ×2 (07:38→17:40)
[2020-12-18] MEDS: Lorazepam 0.5 MG TAB PO SCH ×2 (07:38→20:58)
[2020-12-18] MEDS: Apixaban 5 MG TAB PO SCH ×2 (07:38→20:58)
[2020-12-18] MEDS: Dexamethasone 4 MG TAB PO SCH (07:38)
[2020-12-18] MEDS: Senokot S 8.6-50 MG TAB PO SCH (07:42)
[2020-12-18] MEDS: Polyethylene Glycol 3350 17 GM Packet PO SCH (07:42)
[2020-12-18] MEDS ORDERED: Benzonatate 100 MG CAP PO PRN (09:33)
[2020-12-19] MEDS: HumaLOG 300 UNITS/3 ML VIAL SC PRN ×4 (06:12→20:25)
[2020-12-19] MEDS: Dexamethasone 4 MG TAB PO SCH (08:08)
[2020-12-19] MEDS: Apixaban 5 MG TAB PO SCH ×2 (08:08→20:25)
[2020-12-19] MEDS: metFORMIN 500 MG TAB PO SCH ×2 (08:09→16:47)
[2020-12-19] MEDS: Lorazepam 0.5 MG TAB PO SCH ×2 (08:09→20:25)
[2020-12-19 09:37] LABS: #Eosinphils 0.2 thou/uL (0.0-0.7); #Lymphocytes 2.3 thou/uL (1.20-3.40); #Monocytes 1.1 thou/uL (0.11-0.59); #Neutrophils 6.7 thou/uL (1.40-6.50); %Basophils 0.3 % (0.0-1.0); %Eosinophils 1.9 % (0.0-10.0); %Lymphocytes 22.2 % (21.0-51.0); %Monocytes 10.5 % (0.0-10.0); %Neutrophils 65.1 % (42.0-75.0); Hemoglobin 13.6 g/dL (14.0-18.0); Mean Corpuscular Hemoglobin 26.6 pg (27.0-31.0); Mean Corpuscular Volume 80.7 fL (78.0-98.0); Mean Platelet Volume 7.8 fL (7.4-10.4); Platelet Count 281 thou/uL (130-400); RBC Distribution Width 12.2 % (11.5-14.5); Red Blood Cell (RBC) Count 5.12 mill/uL (4.70-6.10); White Blood Cell (WBC) Count 10.3 thou/uL (4.8-10.8)
[2020-12-19 20:37] VITALS: BP 113/67; TEMP 98.8
[2020-12-20] MEDS: HumaLOG 300 UNITS/3 ML VIAL SC PRN (05:04)
== END 2020-12-20 08:51 | disposition left against medical advice (07) | DRG 870 ==
LOC: ERS 07:52 → T4-A 11:41 → CCU 12-05 12:06 → IMCU/EMU 12-14 22:37 → T4-B 12-15 18:51
PROVIDERS: ADMIT Family Medicine; ATTEND Family Medicine
PROC: 8E0ZXY6 Isolation (ICD-10-PCS; principal; 2020-12-01)
PROC: XW0DXM6 Introduction of Baricitinib into Mouth and Pharynx, External Approach, New Technology Group 6 (ICD-10-PCS; 2020-12-01)
PROC: 3E0333Z Introduction of Anti-inflammatory into Peripheral Vein, Percutaneous Approach (ICD-10-PCS; 2020-12-01)
PROC: 5A1955Z Respiratory Ventilation, Greater than 96 Consecutive Hours (ICD-10-PCS; 2020-12-05)
PROC: 0BH17EZ Insertion of Endotracheal Airway into Trachea, Via Natural or Artificial Opening (ICD-10-PCS; 2020-12-05)
PROC: 0D9670Z Drainage of Stomach with Drainage Device, Via Natural or Artificial Opening (ICD-10-PCS; 2020-12-05)
PROC: 3E0G76Z Introduction of Nutritional Substance into Upper GI, Via Natural or Artificial Opening (ICD-10-PCS; 2020-12-05)
DX: A41.89 Other specified sepsis (principal); U07.1 COVID-19; J12.82 Pneumonia due to coronavirus disease 2019; J80 Acute respiratory distress syndrome; M54.30 Sciatica, unspecified side; F41.9 Anxiety disorder, unspecified; F15.10 Other stimulant abuse, uncomplicated; E11.65 Type 2 diabetes mellitus with hyperglycemia; I95.9 Hypotension, unspecified; S00.91XA Abrasion of unspecified part of head, initial encounter; S70.219A Abrasion, unspecified hip, initial encounter; W06.XXXA Fall from bed, initial encounter; Y92.230 Patient room in hospital as the place of occurrence of the external cause; D64.9 Anemia, unspecified; R13.10 Dysphagia, unspecified; Z91.040 Latex allergy status; Z79.84 Long term (current) use of oral hypoglycemic drugs; Z78.1 Physical restraint status; Z81.8 Family history of other mental and behavioral disorders; Z87.891 Personal history of nicotine dependence; E11.649 Type 2 diabetes mellitus with hypoglycemia without coma; R00.1 Bradycardia, unspecified
CPT/HCPCS: 0240U; 36415; 36416; 36600; 70450; 70486; 71045; 71275; 72170; 74230; 80048; 80053; 80076; 82728; 82805; 83036; 83735; 84100; 84145; 84478; 84484; 85007; 85025; 85027; 85379; 86140; 93005; 93010; 94002; 94003; C9113; J1100; J1650; J1815; J1885; J2060; J2250; J2270; J2704; J2930; J3010; J3475; J3490; J7050; J7120; J8540; Q9967